=== PATIENT | female | born 1950 | race Caucasian/White ===

== ENCOUNTER 2020-05-08 12:15 | Day surgery (SDC) | payer BC, MEDICARE, OTHER ==
[~2020-05-08] VITALS: Ht 167.6 cm; Wt 66.8 kg
[2020-05-08 13:38] LABS: BASO % 0.5 % (0.0-1.0); EOS % 0.5 % (0.0-3.0); HEMATOCRIT 37.7 % (36.0-47.0); HEMOGLOBIN 12.4 g/dl (12.0-15.5); LYMPH # 1.1 10^3/uL (1.5-5.0); LYMPH % 18.4 % (24.0-44.0); MEAN CORPUSCULAR HEMOGLOBIN 32.5 pg (27.0-33.0); MEAN CORPUSCULAR HGB CONC 32.9 g/dl (32.0-36.5); MEAN CORPUSCULAR VOLUME 98.7 fl (80.0-96.0); MONO # 0.5 10^3/uL (0.0-0.8); MONO % 7.6 % (0.0-5.0); NEUTROPHILS # 4.3 10^3/uL (1.5-8.5); NEUTROPHILS % 72.7 % (36.0-66.0); PLATELET COUNT, AUTOMATED 248 10^3/uL (150-450); RED BLOOD COUNT 3.82 10^6/uL (4.00-5.40); WHITE BLOOD COUNT 5.9 10^3/uL (4.0-10.0)
[2020-05-08] MEDS ORDERED: NS 1,000 ML IV ONE (14:00)
[2020-05-08 14:10] LABS: ALBUMIN 4.1 GM/DL (3.2-5.2); ALT/SGPT 18 U/L (12-78); BILIRUBIN,DIRECT 0.2 MG/DL (0.0-0.2); BILIRUBIN,TOTAL 0.7 MG/DL (0.2-1.0); BLOOD UREA NITROGEN 11 MG/DL (7-18); CALCIUM LEVEL 9.9 MG/DL (8.8-10.2); CARBON DIOXIDE LEVEL 28 MEQ/L (21-32); CHLORIDE LEVEL 106 MEQ/L (98-107); CREATININE FOR GFR 0.82 MG/DL (0.55-1.30); GLOMERULAR FILTRATION RATE > 60.0 (>39); GLUCOSE, FASTING 81 MG/DL (70-100); LIPASE 160 U/L (73-393); POTASSIUM SERUM 4.3 MEQ/L (3.5-5.1); SODIUM LEVEL 139 MEQ/L (136-145); TOTAL PROTEIN 7.4 GM/DL (6.4-8.2)
[2020-05-08] MEDS ORDERED: ISOVUE-370 76% 100ML VIAL As Ordered ONE (14:33)
--- NOTE | 2020-05-08 15:11 | REP ---
INDICATION: RLQ pain. COMPARISON: None TECHNIQUE: Axial contrast-enhanced images from the lung bases to the pubic symphysis using 100 cc Isovue 370 intravenous contrast material. Coronal and sagittal reformations obtained. This CT examination was performed using the following dose reduction techniques: Automated exposure control, adjustment of mA and/or kv according to the patient's size, and the use of iterative reconstruction technique. FINDINGS: The appendix is fluid-filled and dilated to 12 mm with inflammatory stranding at the base of the appendix. Findings are consistent with acute appendicitis. No associated perforation, free fluid, or drainable collection/abscess. Remainder of the small and large bowel is grossly unremarkable. Scattered sigmoid diverticula noted without acute diverticulitis. Liver, spleen, pancreas, gallbladder, bilateral adrenal glands and kidneys are normal. Incidental calcified granuloma in the right hepatic lobe. Pelvis demonstrates normal bladder and age-appropriate uterus/adnexa. No ascites. No free air. No intraperitoneal or retroperitoneal adenopathy. Abdominal aorta and vasculature appear normal. Musculoskeletal structures are intact and without acute osseous abnormality. IMPRESSION: Acute appendicitis with dilated appendix measuring 12 mm and periappendiceal stranding at the cecum/base of the appendix. No associated evidence for perforation or drainable collection/abscess. <Electronically signed by Alvaro Kim > 05/08/20 2424
[2020-05-08] MEDS ORDERED: PIPERACILLIN/TAZOBACTAM SOD 3.375 GM in D5W MINI-BAG PLUS 50 ML IV ONE (15:30)
[2020-05-08] MEDS ORDERED: D-10TAB2 PO (16:03)
[2020-05-08] MEDS ORDERED: MAGN400T2 PO (16:03)
[2020-05-08] MEDS ORDERED: ROSU5TAB5 PO (16:03)
[2020-05-08 17:14] LABS: RSV AMPLIFICATION NEGATIVE (NEGATIVE)
[2020-05-08] MEDS ORDERED: BUPIVACAINE HCL 0.25% 30ML VIAL As Ordered ONE (17:20)
[2020-05-08] MEDS ORDERED: LIDOCAINE 1% SDV 30ML VIAL As Ordered ONE (17:20)
--- NOTE | 2020-05-08 17:46 | ECGEPIP ---
[facility] - ED Test Date: 2020-05-08 Pat Name: LINDEN EVANS Department: Room: - Gender: Female Education Professional: Daniela GARCIA : 1950 Requested By: ELLIOTT AVILA Order Number: [id number] Reading MD: Alia Rosario Measurements Intervals [place] Rate: 71 P: 50 IA: 156 QRS: 29 QRSD: 85 T: 46 QT: 409 QTc: 445 Interpretive Statements SINUS RHYTHM SIMILAR 02/10/18 Electronically Signed on 05-08-2020 17:45:38 EST by Alia Rosario
[2020-05-08] MEDS ORDERED: fentaNYL 100 MCG/2 ML INJECTION (J3010) As Ordered ONE ×3 (21:14→22:24)
[2020-05-08] MEDS ORDERED: MIDAZOLAM INJ 2MG/2ML VIAL (J2250 PER 1MG) As Ordered ONE (21:14)
[2020-05-08] MEDS ORDERED: ONDANSETRON 4MG/2ML VIAL As Ordered ONE (21:15)
[2020-05-08] MEDS ORDERED: dexameTHASONE 4 MG/ML 1ML VIAL (J1100 PER 1MG) As Ordered ONE (21:15)
[2020-05-08] MEDS ORDERED: LIDOCAINE 2% 100MG/5ML SDV (FOR ANES.) As Ordered ONE (21:15)
[2020-05-08] MEDS ORDERED: ROCURONIUM BROMIDE 50 MG/5 ML VIAL As Ordered ONE (21:15)
[2020-05-08] MEDS ORDERED: propofoL 200 MG/20 ML VIAL As Ordered ONE (21:15)
[2020-05-08] MEDS ORDERED: ZOSYN 3.375GM VIAL (J2543) As Ordered ONE (22:15)
[2020-05-08] MEDS ORDERED: ACETAMINOPHEN 1000MG 100ML IV BTL (OFIRMEV) (J0131 PER 10MG) As Ordered ONE (22:24)
[2020-05-08] MEDS ORDERED: SUGAMMADEX SODIUM 500 MG/5 ML VIAL (BRIDION) As Ordered ONE (22:37)
[2020-05-08] MEDS ORDERED: KETOROLAC 60MG 2ML VIAL As Ordered ONE (22:37)
[2020-05-08] MEDS ORDERED: ONDANSETRON 4MG/2ML VIAL IV PRN (23:00)
[2020-05-08] MEDS ORDERED: fentaNYL 100 MCG/2 ML INJECTION (J3010) IV PRN (23:00)
[2020-05-08] MEDS ORDERED: oxyCODONE 5MG TAB PO PRN (23:00)
[2020-05-08] MEDS ORDERED: KETOROLAC 30 MG/ML 1ML VIAL IV PRN (23:30)
[2020-05-08] MEDS ORDERED: PERCOCET 5MG/325MG TAB PO PRN (23:30)
[2020-05-09] VITALS: BP 172/76
[2020-05-09 01:30] VITALS: BP 126/64
[2020-05-09 02:39] VITALS: BP 113/57
[2020-05-09 03:39] VITALS: BP 115/57
[2020-05-09 04:33] VITALS: BP 115/59
[2020-05-09] MEDS ORDERED: PERCOCET PO (07:46)
--- NOTE | 2020-05-17 13:17 | ROOPDOC ---
[facility] Report Of Operation Report of Operation DATE OF PROCEDURE: 05/08/20 PREPROCEDURE DIAGNOSES: Acute Appendicitis. POSTPROCEDURE DIAGNOSES: Acute Appendicitis. PROCEDURE: Laparoscopic Appendectomy. SURGEON: Maynor Bazan MD ANILINE PRESS WORKER: ANESTHESIA: General Anesthesia. ESTIMATED BLOOD LOSS: Approximately 10 mL. COMPLICATIONS: none. REMARKS: 70 F seen in the ED for right side abdominal pain since yesterday found to have evidence for acute appendicitis. PROCEDURE NOTE: Distended appendix throughout its course was otherwise healthy, venous congestion. No necrosis or perforation. Small amount of serous fluid in the right gutter and in the pelvis.. DESCRIPTION OF PROCEDURE: Patient has been given a dose of Zosyn perioperatively.Patient was brought to the operating room, placed supine on the table. Sequential compression device placed for DVT prophylaxis. General endotracheal anesthesia started. The abdomen prepped and draped in usual sterile fashion. We paused for a surgical timeout using both pre-incision safety checklist to verify correct patient, procedure site and additional clinical information prior to beginning the procedure Entry into the abdomen done through an incision at the top of the umbilicus. Veress needle inserted on a controlled fashion. Intra-abdominal placement confirmed with saline drop technique. CO2 insufflation started to a pressure of 15 mmHg. Using the same incision a 5 mm port was placed under direct vision of laparoscope. Insertion site was inspected for injury and none was found. She was placed on a Trendelenburg position the right side tilted to allow for better visualization of the appendix. Two 5 mm working ports were placed at the suprapubic area and left lower quadrant area under direct vision, an 8 mm port exchanged at the umbilical camera port site. Operative findings: Her appendix is located free-floating. This appears distended throughout its course, minimally thickened. Mesoappendix is only minimal inflammation. There is a small amount of serous fluid at the right gutter and in her pelvis. Abscess collections noted. The appendix was grasped to pull the base of the appendix into view. The mesoappendix was divided using Harmonic scalpel down to the base. Two PDS Endoloops were placed to ligate the appendix at its base then divided with a Harmonic Scalpel the stump cauterized. Stump appears healthy. Appendix was then delivered into an Endo Catch bag through the 8 mm umbilical port site. . After re-insufflation the surgical site was inspected for hemostasis, the visualized fluid collections irrigated and suctioned off until clear return. Surrounding areas of the abdomen and inspected for fluid collections or signs of injury. The abdomen was deflated. All ports removed. The umbilical fascial defect repaired with 0 Vicryl in a mattress fashion. All skin incisions closed with 4-0 Monocryl in a subcuticular fashion. Steri-Strips and gauze dressing used for wound coverage. Patient was promptly awake and extubated and brought to recovery room stable. All counts of sponges and instruments verified to be correct. . MAYNOR BAZAN MD May 17, 2020 13:17
== END 2020-05-09 10:38 | disposition home or self-care (01) ==
LOC: M ED 12:15 → M SDC 12:16 → M PED 05-09 01:24 → M SDC 05-09 10:38
PROVIDERS: ATTEND Surgery
DX: K35.890 Other acute appendicitis without perforation or gangrene (principal)
CPT/HCPCS: 44970; 74177; 80048; 80076; 81001; 83690; 85025; 87040; 87086; 87631; 88304; 93005; 96365; 96375; 99284; J0131; J1100; J1885; J2250; J2405; J2543; J3010; Q9967